=== PATIENT | male | born 1985 | race Caucasian/White ===

== ENCOUNTER 2021-01-01 21:48 | Emergency (ER) | payer OTHER ==
[~2021-01-01] VITALS: Ht 172.7 cm; Wt 72.7 kg
[~2021-01-01 21:48] MED LIST: NO HOME MEDS
[2021-01-01 21:50] VITALS: BP 133/91
== END 2021-01-01 23:05 | disposition home or self-care (01) ==
LOC: ER 21:48
DX: S92.422A Displaced fracture of distal phalanx of left great toe, initial encounter for closed fracture (principal); M79.675 Pain in left toe(s); F12.90 Cannabis use, unspecified, uncomplicated; Z72.89 Other problems related to lifestyle; Z98.890 Other specified postprocedural states; Z56.0 Unemployment, unspecified; X58.XXXA Exposure to other specified factors, initial encounter; Y93.64 Activity, baseball; Y92.89 Other specified places as the place of occurrence of the external cause; Y99.8 Other external cause status
CPT/HCPCS: 73660; 99283

== ENCOUNTER 2025-04-25 09:07 | Emergency (ER) | payer OTHER ==
[~2025-04-25] VITALS: Ht 172.7 cm; Wt 65.0 kg
[2025-04-25 09:12] VITALS: BP 137/86; PULSE 82; RESP 15; TEMP 96.8; O2SAT 98
--- NOTE | 2025-04-25 09:37 | RADIOLOGY REPORT ---
CLINICAL HISTORY: LEFT KNEE PAIN TECHNIQUE: 4 views of the right knee were obtained. COMPARISON: None FINDINGS: No acute fracture or dislocation is seen. No joint effusion is evident. There are no significant degenerative changes. IMPRESSION: NO ACUTE RADIOGRAPHIC ABNORMALITY OF THE RIGHT KNEE.
--- NOTE | 2025-04-25 09:42 | Physician Documentation ---
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 He states this was about two weeks ago. He says he was holding something heavy went to stand and felt a pop in the suprapatellar area. He says the pain subsided however this happened again a couple of days ago. He says he went to a urgent care however that has a work comp injury which the patient did report. He states that is he has been assigned to a clinic however that has after the holiday weekend so he came here for evaluation. He denies blunt trauma to the area. He is able to ambulate and bear weight him in his does elicit some tenderness. He denies current locking, popping or sensation that giving way. He denies prior issues with the knee. Tetanus witin 5 years: Yes Medication Reconciliation Allergies: Coded Allergies: No Known Allergies (Unverified , 04/25/25) Miscellaneous Medications Home Med List (No Home Medications), (Reported) Past Medical History Past Medical History: No Pertinent History Past Surgical History: orthopedic surgeries Alcohol Use: Occasionally Drug Use: marijuana Lives with: S/O Lives In: Home Occupation: unemployed Physical Exam Vital Signs: Temperature: 96.8, Source: Temporal, Heart Rate: 82, Respiratory Rate: 15, BP: 137/86, Pulse Oximetry: 98, Weight: 65.000 Pulse Oximetry Reflects: adequate oxygenation General Appearance: alert, WD/WN, no apparent distress Knees To inspection of the left knee no obvious trauma or gross deformity. No obvious effusion and negative balloon sign. No change in overlying skin color or temperature. There is tenderness to palpation at the suprapatellar area without obvious deformity or crepitus. The patella tendons are intact. No range of motion deficits of the knee with flexion-extension though it does not complain of subjective pain. Negative Jenn's. Negative laxity or tenderness with valgus varus stress. Progress Results/Orders Results/Orders Vital Signs 04/25/25 09:12 Temp 96.8 Pulse 82 Resp 15 B/P (MAP) 137/86 Pulse Ox 98 EKG/XRAY/CT/US/VASC/MRI Bone/Soft Tissue X-Ray (Ext.) : Interpreted By: self Additional Comment X-ray left knee three-view interpreted by me: No obvious fracture. No malalignment. Soft tissues unremarkable. Medical Decision Making Additional information obtaine: N/A Findings X-ray of the left knee shows no obvious fracture or malalignment. The physical examination in his benign a very subjective. This appears to be a soft tissue injury. I instructed the patient to follow up with the work [facility] medical provider and discuss a referral to a orthopedic surgeon and MRI of the knee that has symptoms going to continue. He states he already has a knee brace that he [place] [id number]. Continue with the ibuprofen for pain. Alternate heat and cold with the knee and elevate. General Diff Dx:Considerations: Include: Abrasion, Contusion, Fracture, Hematoma, Laceration, Malunion, Neurovascular injury, Open fracture, Sprain, Ulcer, Other Knee Diff Dx:Considerations: Include: Meniscus injury, Sprain Ankle Diff Dx:Considerations: Include: Other Foot Diff Dx:Considerations: Include: Other Toe Diff Dx:Considerations: Include: Other Additional Comment Left knee sprain strain. Ligamentous injury of the left knee. Patellar tendon injury. Doubt fracture. Internal derangement of the knee. Departure Disposition: 01 HOME / SELF CARE / HOMELESS Impression: Primary Impression: Knee pain Condition: Stable Discharge Instructions: Acute Knee Pain, Adult Additional Instructions: Continue to rest and elevate the knee. Ibuprofen for pain. Wear your knee brace as needed. Follow up with the your primary care physician or your work comp physician for recheck in the next one or two days and return to the ER for any worsening or concerning symptoms. Referrals: NO PRIMARY CARE PROVIDER (PCP) Signature Scribe Signature: No scribe Attestation: The note accurately reflects work and decisions made by me.Ralph BALDERRAMA 04/25/25 09:44 RALPH ZARATE Apr 25, 2025 09:42
== END 2025-04-25 10:01 | disposition home or self-care (01) ==
LOC: ER 09:08
DX: M25.562 Pain in left knee (principal); F12.90 Cannabis use, unspecified, uncomplicated; Z56.0 Unemployment, unspecified; Z98.890 Other specified postprocedural states; Z72.89 Other problems related to lifestyle
CPT/HCPCS: 73564; 99283